=== PATIENT | male | born 1990 | race Caucasian/White ===

== ENCOUNTER → 2020-01-03 08:35 | Outpatient (CLI) | payer OTHER, SELFPAY ==
[2020-01-03 12:57] LABS: Cholesterol 169 mg/dL (200); High Density Lipoprotein 40 mg/dL; Triglycerides 56 mg/dL; Very Low Density Lipoprotein 11 mg/dL (5-40)
== END ==
PROVIDERS: PCP Family Medicine; Visit Provider Family Medicine
DX: E78.5 Hyperlipidemia, unspecified (principal); Z82.49 Family history of ischemic heart disease and other diseases of the circulatory system
CPT/HCPCS: 36415; 80061

== ENCOUNTER → 2020-01-09 08:53 | Outpatient (CLI) | payer OTHER, SELFPAY ==
--- NOTE | 2020-01-09 08:56 | BI_ITS ---
MAMMOGRAPHY - BILATERAL DIAGNOSTIC REASON FOR EXAM: Male, 29 years old. BILAT DX FOR RT LUMP X 1YR WITH TENDERNESS - NO FAM HX - NO PREV SURG''S - HX OF LIPOMAS PERTINENT HISTORY: Non-contributory. TECHNIQUE: Digital examination. Mediolateral oblique (MLO) and craniocaudad (CC) views of both breasts were obtained, along with 3-D tomosynthesis. CAD: CAD was performed on this study. COMPARISON: None. FINDINGS: Breast Composition: The breasts are almost entirely fatty. There are no dominant masses or suspicious calcifications. No other significant abnormalities are identified. However, because the patient complains of palpable lumps within the right breast further evaluation of them with ultrasound is recommended. No mammographic evidence of abnormality in the left breast. BI/DIAG MAMM W/CAD, BILAT IMPRESSION: Further ultrasonographic evaluation recommended, as described above. Recall Side: Right Breast ASSESSMENT CATEGORY: BIRADS Category 0: Incomplete. Need additional imaging evaluation. A letter regarding these results will be sent to the patient by the facility within 30 days. FOLLOW UP RECOMMENDATION: Ultrasound Recommended. (I) Approximately 10% of breast cancers are not detected by mammography. A normal mammogram should not delay biopsy of a clinically suspicious abnormality. Electronically Signed: Bandar Sears MD at 10:20 EDT , Service support ,
--- NOTE | 2020-01-09 08:56 | US_ITS ---
STUDY: ULTRASOUND BREAST - RIGHT REASON FOR EXAM: Male, 29 years old. Lump TECHNIQUE: Axial and longitudinal images of the RIGHT breast were performed with a high resolution ultrasound transducer. # OF IMAGES: 19 COMPARISON: None. FINDINGS: RIGHT Breast: Sonographic evaluation of the right breast, in the area of concern, shows 2 well-defined slightly hyperechoic subcutaneous nodules with sonographic characteristics of lipomas. The larger measures 2.1 x 2.3 x 0.7 cm, the smaller 2.1 x 2.0 x 0.7 cm. No suspicious shadowing solid lesion or architectural distortion. US/Breast Limited Unilateral IMPRESSION: Benign likely lipomas corresponding to the palpable abnormalities. No suspicious sonographic findings. ASSESSMENT CATEGORY: BIRADS Category 2: Benign. A letter regarding these results will be sent to the patient by the facility within 30 days. Electronically Signed: Bandar Sears MD at 10:44 EDT , Service support ,
== END ==
PROVIDERS: PCP Family Medicine; Referring Provider Family Medicine; Visit Provider Family Medicine
DX: N63.10 Unspecified lump in the right breast, unspecified quadrant (principal)
CPT/HCPCS: 76642; 77062; 77066; G0279